=== PATIENT | female | born 1965 | race African-American/Black ===

== ENCOUNTER 2017-03-13 15:22 | Emergency (ER) | payer OTHER, MEDICAID ==
[~2017-03-13] VITALS: Ht 165.1 cm; Wt 70.0 kg
[2017-03-13] MEDS ORDERED: FURO-152 PO (15:33)
[2017-03-13] MEDS ORDERED: NORCO (15:33)
[2017-03-13 16:15] VITALS: BP 114/86
== END 2017-03-13 16:26 | disposition home or self-care (01) ==
LOC: ER 15:51
DX: T40.2X1A Poisoning by other opioids, accidental (unintentional), initial encounter (principal); E11.9 Type 2 diabetes mellitus without complications; I50.9 Heart failure, unspecified; K74.60 Unspecified cirrhosis of liver; Y92.89 Other specified places as the place of occurrence of the external cause
CPT/HCPCS: 82962; 99284

== ENCOUNTER 2022-01-02 10:55 | Emergency (ER) | payer OTHER, MEDICAID ==
[~2022-01-02] VITALS: Ht 167.6 cm; Wt 100.0 kg
[~2022-01-02 10:55] MED LIST: FURO-152 PO; NORCO
[2022-01-02] MEDS ORDERED: ETOMIDATE 2MG/ML 10ML VIAL IV ONE (11:15)
[2022-01-02] MEDS ORDERED: SUCCINYLCHOLINE CHLORIDE 200MG/10ML IV ONE (11:15)
[2022-01-02] MEDS ORDERED: PROPOFOL 10MG/ML 100ML 100 ML IV SCH (11:15)
[2022-01-02 11:22] LABS: BASOPHILS % 0.3 % (0.0-2.0); EOSINOPHILS % 0.9 % (0.0-5.0); HEMATOCRIT. 41.4 % (36.0-48.0); HEMOGLOBIN. 13.7 g/dL (12.0-16.0); MEAN CORPUSCULAR HEMOGLOBIN 32.7 pg (28.0-32.0); MEAN CORPUSCULAR VOLUME 98.9 fL (81.0-99.0); MEAN PLATELET VOLUME 10.6 fl (7.4-10.4); MONOCYTES % 5.2 % (2.0-8.0); NEUTROPHILS % 83.6 % (40.0-76.0); PLATELET 157 x1000/uL (130-400); RED BLOOD CELL COUNT 4.19 mill/uL (4.2-5.4); RED CELL DISTRIBUTION WIDTH 13.8 % (11.6-14.6)
[2022-01-02] MEDS ORDERED: LEVETIRACETAM 500MG PREMIX 100 ML IV ONE (11:45)
[2022-01-02] MEDS ORDERED: FENTANYL 2500MCG/250ML PMX 250 ML IV ONE (11:45)
[2022-01-02] MEDS ORDERED: ACETAMINOPHEN 650MG SUPP PR ONE (11:45)
[2022-01-02 12:06] LABS: BG BASE EXCESS -3.9 mmol/L (-2.0-2.0); BG CARBOXYHEMOGLOBIN 0.3 % (0.5-1.5); BG DEOXYHEMOGLOBIN 0.5 % (0.0-5.0); BG FRACTION INSPIRED OXYGEN 100; BG HCO3 ACT 20.5 mmol/L (22.0-26.0); BG METHEMOGLOBIN 0.9 % (0.0-1.5); BG OXYGEN SATURATION 99.5 % (92.0-98.5); BG OXYHEMOGLOBIN 98.3 % (94.0-97.0); BG PCO2 35.3 mmHg (35.0-45.0); BG PH 7.382 (7.350-7.450); BG PO2 382.6 mmHg (75.0-100.0); BG SAMPLE SITE RIGHT RADIAL; BG TOTAL HEMOGLOBIN 13.4 g/dL (12.0-18.0); BG TOTAL RESPIRATORY RATE 35 b/min; BG VENT MODE VENT - AC
[2022-01-02 12:27] LABS: CHLORIDE 113 mEq/L (98-107)
[2022-01-02 12:29] LABS: INR 1.3; PROTHROMBIN TIME 13.5 sec (9.6-11.0)
[2022-01-02] MEDS ORDERED: CEFEPIME 1,000 MG in DEXTROSE 5% WATER 50 ML IV STA (12:35)
[2022-01-02] MEDS ORDERED: VANCOMYCIN 1G PREMIX 200 ML IV SCH (12:45)
[2022-01-02] MEDS ORDERED: KCL 20MEQ/100ML PREMIX 100 ML IV ONE (12:45)
[2022-01-02] MEDS ORDERED: SODIUM CHLORIDE 0.9% 1,000 ML IV ONE (13:30)
[2022-01-02] MEDS ORDERED: IBUPROFEN 100MG/5ML UDC PO ONE (15:30)
[2022-01-02 16:55] VITALS: BP 129/76
== END 2022-01-03 06:05 | disposition short-term general hospital (02) ==
LOC: ER 10:55 → CANBEDREQ 01-03 06:30
DX: J96.90 Respiratory failure, unspecified, unspecified whether with hypoxia or hypercapnia (principal); K76.82 Hepatic encephalopathy; R56.9 Unspecified convulsions; I11.0 Hypertensive heart disease with heart failure; I50.9 Heart failure, unspecified; E11.9 Type 2 diabetes mellitus without complications; Z98.890 Other specified postprocedural states; Z20.822 Contact with and (suspected) exposure to COVID-19
CPT/HCPCS: 31500; 36415; 36600; 70450; 71045; 80053; 82140; 82375; 82805; 82962; 83605; 83880; 84484; 85025; 85610; 86850; 86900; 86901; 87040; 87426; 94002; 96365; 96366; 96367; 96368; 96375; 99291; C9803; J0692; J1953; J2704; J3010; J3370; J3480; J7030; J7060